=== PATIENT | male | born 1985 | race Two or more races ===

== ENCOUNTER 2024-04-23 16:14 | Emergency (ER) | payer OTHER ==
[2024-04-23 16:22] VITALS: BP 131/80; PULSE 71; RESP 18; TEMP 97; BMI 28.8
[2024-04-23] MEDS ORDERED: IBUPROFEN 400 MG TABLET (FP) PO ONE (17:01)
[2024-04-23] MEDS ORDERED: LIDOCAINE 4% PATCH TP ONE (17:01)
[2024-04-23] MEDS: LIDOCAINE 5% TOPICAL PATCH TP ONE (17:04)
[2024-04-23] MEDS: IBUPROFEN 400 MG TABLET (FP) PO ONE (17:04)
[2024-04-23] MEDS ORDERED: ACETAMINOPHEN 325 MG TABLET (FP) ONE (17:35)
[2024-04-23] MEDS: ACETAMINOPHEN 325 MG TABLET (FP) PO ONE (17:41)
[2024-04-23] MEDS ORDERED: LIDOCAINE PATCH REMOVAL MC SCH (22:00)
== END 2024-04-23 17:49 | disposition home or self-care (01) ==
LOC: JER 16:14 → JERFT 16:14
DX: M54.50 Low back pain, unspecified (principal); W01.0XXA Fall on same level from slipping, tripping and stumbling without subsequent striking against object, initial encounter
CPT/HCPCS: 99283-25